=== PATIENT | female | born 1945 | race African-American/Black ===

== ENCOUNTER 2023-11-27 23:52 | Emergency (ER) | payer MEDICARE, OTHER ==
[~2023-11-27] VITALS: Ht 166.4 cm; Wt 61.0 kg
[2023-11-28 00:14] VITALS: BP 186/88; PULSE 84; RESP 16; TEMP 99.3; O2SAT 100
[2023-11-28] MEDS ORDERED: BACITRACIN ZINC OINT UDPKT TOP ONE (00:45)
[2023-11-28] MEDS ORDERED: TETANUS, DIPHTHERIA, PERTUSSIS VAC/PF 0.5ML (>10YR OLD) IM ONE (00:45)
[2023-11-28] MEDS ORDERED: LIDOCAINE HCL/PF 1% 10 MG/ML 5ML VIAL INFIL ONE (00:45)
== END 2023-11-28 03:40 | disposition home or self-care (01) ==
LOC: ER 11-28 00:13
DX: S01.511A Laceration without foreign body of lip, initial encounter (principal); W18.39XA Other fall on same level, initial encounter; Y93.89 Activity, other specified; Y92.89 Other specified places as the place of occurrence of the external cause; Y99.8 Other external cause status
CPT/HCPCS: 12013; 99282